=== PATIENT | male | born 2000 | race Caucasian/White ===

== ENCOUNTER 2023-05-27 13:47 | Emergency (ER) | payer BC, OTHER ==
[~2023-05-27] VITALS: Ht 172.7 cm; Wt 59.3 kg
[2023-05-27 13:47] VITALS: BP 127/68; TEMP 98.5; O2SAT 99
[2023-05-27] MEDS ORDERED: NS 1,000 ML IV ONE (16:45)
[2023-05-27 17:09] LABS: CK-MB VALUE MASS < 1.0 NG/ML (<3.6)
[2023-05-27 17:14] LABS: BASO % 0.2 % (0.0-1.0); EOS % 0.4 % (0.0-3.0); FREE T4 1.25 NG/DL (0.89-1.76); HEMATOCRIT 44.7 % (42.0-52.0); HEMOGLOBIN 15.2 g/dl (13.5-17.5); LYMPH # 1.7 10^3/uL (1.5-5.0); MEAN CORPUSCULAR HEMOGLOBIN 29.9 pg (27.0-33.0); MEAN CORPUSCULAR VOLUME 87.8 fl (80.0-96.0); MONO # 0.6 10^3/uL (0.0-0.8); MONO % 12.9 % (2.0-8.0); NEUTROPHILS # 2.3 10^3/uL (1.5-8.5); NEUTROPHILS % 49.3 % (36.0-66.0); PLATELET COUNT, AUTOMATED 151 10^3/uL (150-450); RED BLOOD COUNT 5.09 10^6/uL (4.30-6.10); THYROID STIMULATING HORMONE 3.975 uIU/ML (0.55-4.78); WHITE BLOOD COUNT 4.6 10^3/uL (4.0-10.0)
[2023-05-27 17:15] LABS: CPK CREATINE PHOSPHOKINASE 177 U/L (46-171); MB/CK RELATIVE INDEX 0.56 (< OR =4)
[2023-05-27 17:53] LABS: ETHYL ALCOHOL (ETHANOL) < 0.003 % (0.000-0.010)
[2023-05-27 17:55] LABS: ACETAMINOPHEN LEVEL 5.2 UG/ML (10.0-20.0); ALBUMIN 4.7 G/DL (3.2-5.2); ALKALINE PHOSPHATASE 63 U/L (46-116); ALT/SGPT 18 U/L (7.0-40); AST/SGOT 13 U/L (<34); BILIRUBIN,DIRECT 0.2 MG/DL (<0.4); BILIRUBIN,TOTAL 0.5 MG/DL (0.3-1.2); SALICYLATE LEVEL < 3.0 MG/DL (<30); TOTAL PROTEIN 7.2 G/DL (5.7-8.2)
[2023-05-27 18:51] LABS: AMPHETAMINES LEVEL URINE NEGATIVE (NEGATIVE); BARBITURATES URINE NEGATIVE (NEGATIVE); BENZODIAZEPINES URINE NEGATIVE (NEGATIVE); COCAINE METABOLITE URINE NEGATIVE (NEGATIVE); PHENCYCLIDINE URINE NEGATIVE (NEGATIVE)
[2023-05-27 18:52] LABS: METHADONE URINE NEGATIVE (NEGATIVE); OPIATES URINE NEGATIVE (NEGATIVE)
[2023-05-27 18:59] LABS: CANNABINOIDS URINE POSITIVE (NEGATIVE)
[2023-05-27] MEDS ORDERED: ACETAMINOPHEN 500 MG TAB PO ONE (20:00)
== END 2023-05-27 20:33 | disposition left against medical advice (07) ==
LOC: M ED 13:47
DX: J06.9 Acute upper respiratory infection, unspecified (principal); Z87.442 Personal history of urinary calculi

== ENCOUNTER 2023-09-15 16:38 | Emergency (ER) | payer BC ==
[~2023-09-15] VITALS: Ht 172.7 cm; Wt 61.4 kg
[2023-09-15 17:45] LABS: HEMATOCRIT 43.6 % (42.0-52.0); HEMOGLOBIN 15.7 g/dl (13.5-17.5); MEAN CORPUSCULAR VOLUME 88.8 fl (80.0-96.0); PLATELET COUNT, AUTOMATED 252 10^3/uL (150-450); RED BLOOD COUNT 4.91 10^6/uL (4.30-6.10); WHITE BLOOD COUNT 3.9 10^3/uL (4.0-10.0)
[2023-09-15 18:10] LABS: ETHYL ALCOHOL (ETHANOL) 0.003 % (0.000-0.010)
[2023-09-15 18:12] LABS: ALKALINE PHOSPHATASE 56 U/L (46-116); ALT/SGPT 24 U/L (7.0-40); AST/SGOT 14 U/L (<34); BILIRUBIN,DIRECT 0.3 MG/DL (<0.4); BILIRUBIN,TOTAL 0.7 MG/DL (0.3-1.2); BLOOD UREA NITROGEN 18 MG/DL (9-23); CALCIUM LEVEL 9.8 MG/DL (8.5-10.1); CARBON DIOXIDE LEVEL 28 MMOL/L (20-31); CHLORIDE LEVEL 103 MMOL/L (98-107); CREATININE FOR GFR 0.85 MG/DL (0.70-1.30); GLOMERULAR FILTRATION RATE > 60.0 (>60); GLUCOSE, FASTING 88 MG/DL (60-100); POTASSIUM SERUM 3.9 MMOL/L (3.5-5.1); SALICYLATE LEVEL < 3.0 MG/DL (<30); SODIUM LEVEL 139 MMOL/L (136-145); TOTAL PROTEIN 7.6 G/DL (5.7-8.2)
[2023-09-15 18:14] LABS: THYROID STIMULATING HORMONE 2.134 uIU/ML (0.55-4.78)
[2023-09-15 18:48] LABS: AMPHETAMINES LEVEL URINE NEGATIVE (NEGATIVE); BARBITURATES URINE NEGATIVE (NEGATIVE); BENZODIAZEPINES URINE NEGATIVE (NEGATIVE); COCAINE METABOLITE URINE NEGATIVE (NEGATIVE); METHADONE URINE NEGATIVE (NEGATIVE); OPIATES URINE NEGATIVE (NEGATIVE); PHENCYCLIDINE URINE NEGATIVE (NEGATIVE)
[2023-09-15 18:54] LABS: CANNABINOIDS URINE POSITIVE (NEGATIVE)
[2023-09-15 22:01] VITALS: BP 104/53; TEMP 98.5; O2SAT 98
== END 2023-09-15 22:03 | disposition home or self-care (01) ==
LOC: M ED 16:38
DX: F43.0 Acute stress reaction (principal)

== ENCOUNTER → 2023-12-02 | Outpatient (REF) | payer BC, MEDICAID ==
[2023-12-02 18:37] LABS: HEMATOCRIT 40.7 % (42.0-52.0); HEMOGLOBIN 13.8 g/dl (13.5-17.5); MEAN CORPUSCULAR HEMOGLOBIN 30.7 pg (27.0-33.0); MEAN CORPUSCULAR HGB CONC 33.9 g/dl (32.0-36.5); MEAN CORPUSCULAR VOLUME 90.6 fl (80.0-96.0); PLATELET COUNT, AUTOMATED 215 10^3/uL (150-450); RED BLOOD COUNT 4.49 10^6/uL (4.30-6.10); WHITE BLOOD COUNT 9.3 10^3/uL (4.0-10.0)
[2023-12-02 18:54] LABS: BLOOD UREA NITROGEN 18 MG/DL (9-23); CALCIUM LEVEL 9.1 MG/DL (8.5-10.1); CARBON DIOXIDE LEVEL 28 MMOL/L (20-31); CHLORIDE LEVEL 100 MMOL/L (98-107); CREATININE FOR GFR 0.87 MG/DL (0.70-1.30); GLOMERULAR FILTRATION RATE > 60.0 (>60); GLUCOSE, FASTING 86 MG/DL (60-100); POTASSIUM SERUM 3.9 MMOL/L (3.5-5.1); SODIUM LEVEL 133 MMOL/L (136-145)
[2023-12-02 19:26] LABS: HIV 1&2 SCREEN NEGATIVE (NEGATIVE)
[2023-12-02 19:34] LABS: HEPATITIS C VIRUS ABY INDEX 0.03 INDEX (<0.8)
== END ==
LOC: M LAB REF 17:50
PROVIDERS: ATTEND Physician Assistant
DX: F32.A Depression, unspecified (principal); Z11.59 Encounter for screening for other viral diseases; Z11.4 Encounter for screening for human immunodeficiency virus [HIV]

== ENCOUNTER 2024-01-02 19:21 | Emergency (ER) | payer BC, MEDICAID, SELFPAY ==
[~2024-01-02] VITALS: Ht 172.7 cm; Wt 59.0 kg
[2024-01-02] MEDS ORDERED: HYDR-643 PO (19:58)
[2024-01-02] MEDS ORDERED: LEXA5TAB13 PO (19:58)
[2024-01-02 21:34] LABS: HEMATOCRIT 44.2 % (42.0-52.0); HEMOGLOBIN 14.6 g/dl (13.5-17.5); MEAN CORPUSCULAR VOLUME 90.8 fl (80.0-96.0); PLATELET COUNT, AUTOMATED 233 10^3/uL (150-450); RED BLOOD COUNT 4.87 10^6/uL (4.30-6.10); WHITE BLOOD COUNT 8.9 10^3/uL (4.0-10.0)
[2024-01-02 22:02] LABS: AMPHETAMINES LEVEL URINE NEGATIVE (NEGATIVE); BARBITURATES URINE NEGATIVE (NEGATIVE); BENZODIAZEPINES URINE NEGATIVE (NEGATIVE); COCAINE METABOLITE URINE NEGATIVE (NEGATIVE); METHADONE URINE NEGATIVE (NEGATIVE); OPIATES URINE NEGATIVE (NEGATIVE); PHENCYCLIDINE URINE NEGATIVE (NEGATIVE)
[2024-01-02 22:05] LABS: CANNABINOIDS URINE POSITIVE (NEGATIVE); ETHYL ALCOHOL (ETHANOL) < 0.003 % (0.000-0.010)
[2024-01-02 22:07] LABS: ALBUMIN 4.8 G/DL (3.2-5.2); ALKALINE PHOSPHATASE 58 U/L (46-116); ALT/SGPT 16 U/L (7.0-40); AST/SGOT 14 U/L (<34); BILIRUBIN,DIRECT 0.2 MG/DL (<0.4); BILIRUBIN,TOTAL 0.5 MG/DL (0.3-1.2); BLOOD UREA NITROGEN 17 MG/DL (9-23); CARBON DIOXIDE LEVEL 30 MMOL/L (20-31); CHLORIDE LEVEL 104 MMOL/L (98-107); CREATININE FOR GFR 0.86 MG/DL (0.70-1.30); GLOMERULAR FILTRATION RATE > 60.0 (>60); GLUCOSE, FASTING 80 MG/DL (60-100); POTASSIUM SERUM 4.3 MMOL/L (3.5-5.1); SALICYLATE LEVEL < 3.0 MG/DL (<30); SODIUM LEVEL 137 MMOL/L (136-145); TOTAL PROTEIN 7.1 G/DL (5.7-8.2)
[2024-01-02 22:09] LABS: THYROID STIMULATING HORMONE 1.994 uIU/ML (0.55-4.78)
[2024-01-02] MEDS ORDERED: HOME MED LIST COMPLETE! XX SCH (22:15)
[2024-01-03 11:19] VITALS: BP 126/60; TEMP 97; O2SAT 99
== END 2024-01-03 11:20 | disposition home or self-care (01) ==
LOC: M ED 19:21
DX: F43.0 Acute stress reaction (principal); F12.10 Cannabis abuse, uncomplicated; Z79.811 Long term (current) use of aromatase inhibitors; Z79.899 Other long term (current) drug therapy

== ENCOUNTER 2024-01-31 07:25 | Inpatient (IN) | payer MEDICAID ==
[~2024-01-31 07:25] MED LIST: HYDR-643 PO; LEXA5TAB13 PO
[2024-01-31 08:03] LABS: HEMATOCRIT 42.9 % (42.0-52.0); HEMOGLOBIN 14.4 g/dl (13.5-17.5); MEAN CORPUSCULAR HEMOGLOBIN 30.1 pg (27.0-33.0); MEAN CORPUSCULAR HGB CONC 33.6 g/dl (32.0-36.5); MEAN CORPUSCULAR VOLUME 89.6 fl (80.0-96.0); PLATELET COUNT, AUTOMATED 218 10^3/uL (150-450); RED BLOOD COUNT 4.79 10^6/uL (4.30-6.10); WHITE BLOOD COUNT 6.2 10^3/uL (4.0-10.0)
[2024-01-31 08:20] LABS: ETHYL ALCOHOL (ETHANOL) 0.006 % (0.000-0.010)
[2024-01-31] MEDS ORDERED: HOME MED LIST COMPLETE! XX SCH (08:20)
[2024-01-31 08:22] LABS: ALBUMIN 4.8 G/DL (3.2-5.2); ALKALINE PHOSPHATASE 73 U/L (46-116); ALT/SGPT 11 U/L (7.0-40); AST/SGOT 10 U/L (<34); BILIRUBIN,DIRECT 0.4 MG/DL (<0.4); BLOOD UREA NITROGEN 17 MG/DL (9-23); CALCIUM LEVEL 9.3 MG/DL (8.5-10.1); CARBON DIOXIDE LEVEL 27 MMOL/L (20-31); CHLORIDE LEVEL 102 MMOL/L (98-107); CREATININE FOR GFR 0.93 MG/DL (0.70-1.30); GLOMERULAR FILTRATION RATE > 60.0 (>60); GLUCOSE, FASTING 124 MG/DL (60-100); POTASSIUM SERUM 3.5 MMOL/L (3.5-5.1); SALICYLATE LEVEL < 3.0 MG/DL (<30); SODIUM LEVEL 141 MMOL/L (136-145); TOTAL PROTEIN 7.3 G/DL (5.7-8.2)
[2024-01-31 08:24] LABS: THYROID STIMULATING HORMONE 3.693 uIU/ML (0.55-4.78)
[2024-01-31 09:06] LABS: AMPHETAMINES LEVEL URINE NEGATIVE (NEGATIVE); BARBITURATES URINE NEGATIVE (NEGATIVE); BENZODIAZEPINES URINE NEGATIVE (NEGATIVE); COCAINE METABOLITE URINE NEGATIVE (NEGATIVE); METHADONE URINE NEGATIVE (NEGATIVE); OPIATES URINE NEGATIVE (NEGATIVE)
[2024-01-31 09:07] LABS: PHENCYCLIDINE URINE NEGATIVE (NEGATIVE)
[2024-01-31 09:08] LABS: CANNABINOIDS URINE POSITIVE (NEGATIVE)
[2024-01-31] MEDS ORDERED: ACETAMINOPHEN TAB 650MG DOSE (2X325MG) PO PRN (10:45)
[2024-01-31] MEDS ORDERED: IBUPROFEN 400MG TAB PO PRN (10:45)
[2024-01-31] MEDS ORDERED: MOM 30ML SUSPENSION UDC PO PRN (10:45)
[2024-01-31] MEDS ORDERED: MAALOX 30 ML SUSP *UDC PO PRN (10:45)
[2024-01-31] MEDS: LORazepam 1 MG TAB PO ONE (11:21)
[2024-01-31 12:37] VITALS: BP 107/54; TEMP 98.4; O2SAT 97
[2024-01-31 16:05] VITALS: BP 100/63; TEMP 98; O2SAT 99
[2024-01-31] MEDS: diphenhydrAMINE 25MG CAP PO PRN (21:40)
[2024-01-31] MEDS: traZODone 50 MG TAB PO PRN (23:01)
[2024-02-01 06:26] VITALS: BP 129/68; TEMP 97.8; O2SAT 98
[2024-02-01] MEDS: ESCITALOPRAM OXALATE 5MG TABLET (LEXAPRO) PO SCH (09:22)
[2024-02-01 18:01] VITALS: BP 136/75; TEMP 97.5
[2024-02-02 06:41] VITALS: BP 115/66; TEMP 97; O2SAT 100
[2024-02-02 16:13] VITALS: BP 102/64; TEMP 97.5; O2SAT 97
[2024-02-03 06:58] VITALS: BP 147/59; TEMP 97.9; O2SAT 98
== END 2024-02-03 12:19 | disposition home or self-care (01) | DRG 754 ==
LOC: M ED 08:32 → M ED INP 10:43 → M PSY 12:38
PROVIDERS: ADMIT Psychiatry & Neurology Psychiatry; ATTEND Student in an Organized Health Care Education/Training Program
DX: F43.21 Adjustment disorder with depressed mood (principal); F12.90 Cannabis use, unspecified, uncomplicated; R45.850 Homicidal ideations; R45.851 Suicidal ideations; J45.909 Unspecified asthma, uncomplicated; Z87.891 Personal history of nicotine dependence; Z63.0 Problems in relationship with spouse or partner; Z56.0 Unemployment, unspecified; Z91.52 Personal history of nonsuicidal self-harm; Z79.899 Other long term (current) drug therapy; Z11.52 Encounter for screening for COVID-19